=== PATIENT | female | born 1970 | race Caucasian/White ===

== ENCOUNTER → 2018-06-27 | Day surgery (SDC) | payer OTHER ==
[~2018-06-27] MED LIST: AROMASIN25 MG PO; COZAAR25 MG; PERCOCET 5-3251 EACH PO; RECTICARE30 GM TOP; [UNRECOGNIZED DRUG - OTHER] PO
== END | disposition home or self-care (01) ==
LOC: ADM 06-25 12:45 → CIR.AMB 06:09
DX: K60.3 Anal fistula (principal); K60.1 Chronic anal fissure